=== PATIENT | female | born 1950 | race Caucasian/White ===

== ENCOUNTER → 2019-08-23 | Emergency (ER) | payer MEDICARE, OTHER ==
[~2019-08-23] VITALS: Ht 167.6 cm; Wt 49.9 kg
[~2019-08-23] MED LIST: DEBROX15 M1 BOTH EARS; Flonase Nasal Inhaler 16gm NASAL ONE; SALINE NASAL SP45 ML NASAL; TYLENOL EXTRA500 MG ORAL
--- NOTE | 2019-08-23 20:31 | NUR ---
ED Nurse Note: pt walked in to ed for c/o sinus pain 11/20 [id number]. pt report she think she may have ruptured her eardrum beause she cant hear well. pt denied any cough, or flu like S/Sx.
[2019-08-23 20:32] VITALS: BP 148/87
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
--- NOTE | 2019-08-23 20:50 | NUR ---
ER DISCHARGE NOTE: Patient is cleared to be discharged per ERMD, pt is aox4, on room air, with stable vital signs. pt was given dc and prescription instructions, pt was able to verbalize understanding, pt id band removed without complications. pt is able to ambulate with steady gait. pt took all belongings.
== END | disposition home or self-care (01) ==
LOC: EMR 21:02
DX: J32.9 Chronic sinusitis, unspecified (principal); H61.23 Impacted cerumen, bilateral; R51 Headache
CPT/HCPCS: 99283